=== PATIENT | male | born 1990 | race Two or more races ===

== ENCOUNTER 2018-02-16 02:18 | Emergency (ER) | payer SELFPAY ==
[~2018-02-16] VITALS: Ht 180.3 cm; Wt 135.2 kg
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
[2018-02-16] MEDS ORDERED: Tetanus/Diptheria/Pertussis Vaccine 0.5ml Syr IM ONE (02:30)
[2018-02-16 02:37] VITALS: BP 135/88
[2018-02-16 06:45] VITALS: BP 135/88
--- NOTE | 2018-02-16 09:08 | Diagnostic Imaging Report ---
Indications: Head trauma Technique: Spiral acquisitions obtained through the brain. Angled axial and coronal 5 x 5 mm slices were reconstructed. Total dose length product 1362.01 mGycm. CTDI vol(s) 70.38 mGy. Dose reduction achieved using automated exposure control Comparison: None. Findings: There is a large high left parietal scalp hematoma. No acute intracranial hemorrhage or edema. No mass effect nor midline shift. Normal duong-white differentiation. Visualized orbits and sinuses are unremarkable. Intact calvarium Impression: Positive for scalp soft tissue injury Negative for acute intracranial bleed or mass effect This agrees with the preliminary interpretation provided overnight by [facility]. The CT scanner at [facility] is accredited by the [employer] and the scans are performed using protocols designed to limit radiation exposure to as low as reasonably achievable to attain images of sufficient resolution adequate for diagnostic evaluation.
== END 2018-02-16 06:46 | disposition home or self-care (01) ==
LOC: EDBD 02:18 → EMR 02:42
DX: S01.112A Laceration without foreign body of left eyelid and periocular area, initial encounter (principal); S01.01XA Laceration without foreign body of scalp, initial encounter; Y08.09XA Assault by strike by other specified type of sport equipment, initial encounter; Y92.512 Supermarket, store or market as the place of occurrence of the external cause; Z23 Encounter for immunization; F10.129 Alcohol abuse with intoxication, unspecified
CPT/HCPCS: 70450; 90471; 90715; 96372; 99284